=== PATIENT | female | born 1935 | race Caucasian/White ===

== ENCOUNTER 2021-08-11 18:37 | Emergency (ER) | payer MEDICARE, MEDICAID ==
[~2021-08-11] VITALS: Ht 157.5 cm; Wt 74.8 kg
[2021-08-11 18:42] VITALS: BP_SYST 119
--- NOTE | 2021-08-11 18:42 | NUR ---
PT TRIAGED AND ON GURNEY WITH EMT'S WAITING ROOM FOR AVAILABLE BED
[2021-08-11 19:54] LABS: ANION GAP 7 (5-15); CALCIUM 9.5 mg/dL (8.4-11.0); CHLORIDE 105 mmol/L (98-107); CREATININE 0.98 mg/dL (0.55-1.30); GLUCOSE 161 mg/dL (70-99); POTASSIUM 3.6 mmol/L (3.5-5.1); SODIUM SERUM 140 mmol/L (136-145); UREA NITROGEN, BLOOD 20 mg/dL (8-21)
[2021-08-11 20:03] LABS: ALANINE AMINOTRANSFERASE 24 U/L (12-78); ALBUMIN 2.9 g/dL (3.4-4.8); ASPARTATE AMINOTRANSFERASE 21 U/L (10-37); TOTAL BILIRUBIN 0.4 mg/dL (0.0-1.0)
[2021-08-11 20:16] LABS: HEMATOCRIT 39.6 % (36-48); HEMOGLOBIN 12.7 g/dL (12.0-16.0); MEAN CORPUSCULAR HEMOGLOBIN 27 pg (27-31); MEAN CORPUSCULAR HGB CONC 32 % (32-36); MEAN CORPUSCULAR VOLUME 85 fL (79.0-98.0); PLATELET COUNT (AUTO) 271 K/uL (130-430); RED BLOOD CELL COUNT(AUTO) 4.69 MIL/uL (4.2-6.2); RED CELL DISTRIBUTION WIDTH 15.5 % (9.0-15.0); WHITE BLOOD COUNT (AUTO) 10.2 K/uL (4.8-10.8)
[2021-08-11] MEDS ORDERED: DIPHENHYDRAMINE INJ 50 MG/ML VIAL IVP ONE (20:30)
[2021-08-11] MEDS ORDERED: FAMOTIDINE PF 20 MG/2 ML VIAL IVP ONE (20:30)
--- NOTE | 2021-08-11 22:21 | NUR ---
Patient to bed 7, hooked to continuous monitor
--- NOTE | 2021-08-11 22:25 | NUR ---
Pt SONNY from home to ED with history of diabetes on insulin, brought to the ED by paramedics secondary to ALOC x2 days. Per paramedics, patient is able to carry small conversations and answer simple questions at baseline but was reported to be increasingly altered per family. Blood sugar in the field was 204. Patient is full code. Patient does not offer any complaints
[2021-08-11 23:15] LABS: BAND % (MANUAL) 3 % (0-6); BASOPHILS % (MANUAL) 0 % (0-2); EOSINOPHILS % (MANUAL) 3 % (0-7); LYMPHOCYTES % (MANUAL) 12 % (20-46); MONOCYTES % (MANUAL) 8 % (0-11)
--- NOTE | 2021-08-11 23:27 | NUR ---
Pt sitting on Bedpan attempting to provide urine
[2021-08-11 23:50] LABS: BILIRUBIN,URINE NEGATIVE (NEGATIVE); BLOOD, URINE NEGATIVE (NEGATIVE); CLARITY/URINE CLEAR (CLEAR); COLOR,URINE YELLOW (YELLOW); GLUCOSE,URINE NEGATIVE (NEGATIVE); KETONES,URINE NEGATIVE (NEGATIVE); LEUKOCYTE ESTERASE ,URINE NEGATIVE (NEGATIVE); NITRITE, URINE NEGATIVE (NEGATIVE); PH,URINE 6.5 (5.0-8.0); PROTEIN URINE NEGATIVE (NEGATIVE); UROBILINOGEN,URINE 0.2 (0.2-1.0)
--- NOTE | 2021-08-12 00:36 | NUR ---
Pt provided urine via bedpan, sample sent to lab
--- NOTE | 2021-08-12 01:31 | NUR ---
Pt resting in comfort on ED gurney with rails up
--- NOTE | 2021-08-12 02:28 | NUR ---
VSS at 131/72, 64, 98% RA, 18, 98.4, 0/10
--- NOTE | 2021-08-12 03:00 | NUR ---
Dr. Lewis bedside for pt eval
--- NOTE | 2021-08-12 03:58 | NUR ---
Attempted to call family, Juan Greer (son), to waste picker pt post DC. However, no one answered. Will try again later
--- NOTE | 2021-08-12 04:40 | NUR ---
2nd try to contact family (son) by phone, he has yet to answer
[2021-08-12 04:41] VITALS: BP_SYST 118
--- NOTE | 2021-08-12 05:51 | NUR ---
Tried for 3rd time, No answer of phone call reaching out to give ride for pt going back home
--- NOTE | 2021-08-12 06:43 | NUR ---
Mary Escobar (daughter) [phone]
== END 2021-08-12 07:30 | disposition home or self-care (01) ==
LOC: SED 18:37
DX: R41.82 Altered mental status, unspecified (principal); Z88.2 Allergy status to sulfonamides; Z88.8 Allergy status to other drugs, medicaments and biological substances
CPT/HCPCS: 36415; 70450-TC; 71045; 76376; 80053; 81003; 82962; 83605; 84484; 85007; 85027; 87086; 93005; 99285